=== PATIENT | male | born 1975 | race African-American/Black ===

== ENCOUNTER 2018-04-28 20:56 | Inpatient (IN) ==
[2018-04-28 21:26] LABS: Apearance,Urine CLEAR (Clear); Basophils % 0.1 % (0.0-0.8); Bilirubin,Urine Negative (Negative); Blood, Urine Moderate mg/dL (Negative); Glucose,Urine (UA) 150 mg/dL (Negative); Hematocrit 46.2 VOL% (42.0-52.0); Hemoglobin 15.2 GM/DL (14.0-18.0); Immature Granulocytes % 0.8 %; Immature Granulocytes Absolute 0.15 #; Ketones,Urine 5 mg/dL (Negative); Lymphocytes # 1.8 10*3/uL (1.4-4.0); Lymphocytes % 9.8 % (21.2-54.2); Mean Corpuscular HGB Conc 32.9 GM/DL (32-36); Mean Corpuscular Hemoglobin 31 PG (27-34); Mean Corpuscular Volume 95.1 FL (87-102); Mean Platelet Volume 9.3 FL (9.6-12.0); Monocytes # 1.1 10*3/uL (0.11-0.8); Mucus,Urine Occasional /LPF (Occasional); Neutrophils # 15.3 10*3/uL (1.4-7.4); Neutrophils % 83.3 % (38.7-73.9); Nitrite,Urine Negative (Negative); Platelet Count 192 T/CUMM (130-400); Protein,Urine Negative; RBC,Urine 3 /HPF (0-4); Red Blood Count 4.86 MC/CUMM (3.8-5.5); Red Cell Distribution Width 12.9 % (9.3-17.3); Urine Color Yellow (Yellow); Urine Urobilinogen < 2.0 EU/DL (0.2-1.0); WBC,Urine 1 /HPF (0-6); White Blood Count 18.4 T/CUMM (4-12)
[2018-04-28] MEDS ORDERED: ceFAZolin 1,000 MG VIAL ONE (21:27)
[2018-04-28 21:28] LABS: Barbiturates Screen,Urine Negative (Negative); Benzodiazepines Screen,Urine Negative (Negative); Cannabinoid Screen,Urine Negative (Negative); Opiate Screen,Urine Negative (Negative); Phencyclidine Screen,Urine Negative (Negative)
[2018-04-28] MEDS ORDERED: PROPOFOL 1,000 MG/100 ML BOTTLE IV ONE (21:28)
[2018-04-28 21:34] LABS: ABG HCO3 23.6 MMOL/L (20-26); ABG PCO2 36.8 MM HG (35-48); ABG PH 7.407 (7.35-7.45); ABG TCO2 19.6 MMOL/L (23-27)
[2018-04-28 21:36] LABS: INR 0.9; Partial Thromboplastin Time < 21.0 SECS (0-40)
[2018-04-28] MEDS ORDERED: VECURONIUM 10 MG VIAL IV ONE (21:39)
[2018-04-28] MEDS ORDERED: ROCURONIUM 100 MG/10 ML VIAL IV ONE ×2 (21:39→23:46)
[2018-04-28] MEDS ORDERED: ETOMIDATE 20 MG/10 ML VIAL IV ONE (21:39)
[2018-04-28] MEDS ORDERED: DIPH/TET/ACEL PERT BOOSTER VACCINE 0.5 ML VIAL IM ONE ×2 (21:47)
[2018-04-28 21:52] LABS: Alanine Aminotransferase 73 U/L (16-61); Alkaline Phosphatase 42 U/L (45-117); Amylase 55 U/L (25-115); Aspartate Amino Transferase 109 U/L (0-37); Blood Urea Nitrogen 13 MG/DL (7-18); Calcium 8.4 MG/DL (8.5-10.1); Glucose 109 MG/DL (74-106); Osmolality,Calculated 283.1 MOS/KG (273-304); Potassium 3.9 MMOL/L (3.5-5.1); Sodium 142 MMOL/L (136-145); Total Protein 5.9 G/DL (6.4-8.3)
[2018-04-28 22:19] LABS: Lactic Acid 1.4 MMOL/L (0.4-2.0)
[2018-04-28] MEDS: SODIUM CHLORIDE 0.9% 1,000 ML IV SCH (23:45)
[2018-04-28] MEDS ORDERED: PROPOFOL 1,000 MG/100 ML BOTTLE IV SCH (23:45)
[2018-04-28] MEDS ORDERED: SEVOFLURANE 1 UNIT/15 MINUTE INH ONE (23:46)
[2018-04-28] MEDS ORDERED: fentaNYL 100 MCG/2 ML VIAL ONE (23:46)
[2018-04-28] MEDS ORDERED: ETOMIDATE 40 MG/20 ML VIAL IV ONE (23:46)
[2018-04-28] MEDS ORDERED: MIDAZOLAM 2 MG/2 ML VIAL ONE (23:46)
[2018-04-28] MEDS ORDERED: LACTATED RINGERS 1,000 ML IV ONE (23:46)
[2018-04-29] MEDS: MORPHINE 4 MG/1 ML VIAL IV PRN ×2 (00:38→14:23)
[2018-04-29] MEDS ORDERED: fentaNYL INJ 1,250 MCG in SODIUM CHLORIDE 0.9% 225 ML IV PRN (00:43)
[2018-04-29 02:48] LABS: Pt O2 Delivery Device Ventilator
[2018-04-29 02:49] LABS: ABG Base Excess -1.8 MMOL/L (-2.5-2.5); ABG HCO3 24.3 MMOL/L (20-26); ABG Oxygen Saturation 98.8 % (95-100); ABG PCO2 46.7 MM HG (35-48); ABG PH 7.335 (7.35-7.45); ABG PO2 159.7 MM HG (80-95); ABG TCO2 25.8 MMOL/L (23-27)
[2018-04-29] MEDS: PROPOFOL 1,000 MG/100 ML BOTTLE IV SCH ×2 (03:13→07:16)
[2018-04-29] MEDS: ceFAZolin 2,000 MG in PREMIX 1 EACH IV SCH ×2 (05:21→14:59)
[2018-04-29] MEDS: SODIUM CHLORIDE 0.9% 1,000 ML IV SCH ×3 (07:15→23:30)
[2018-04-29 10:05] LABS: ABG Base Excess 2.2 MMOL/L (-2.5-2.5); ABG Oxygen Saturation 99.5 % (95-100); ABG PCO2 37.7 MM HG (35-48); ABG PH 7.456 (7.35-7.45); ABG PO2 243.5 MM HG (80-95); ABG TCO2 27.1 MMOL/L (23-27)
[2018-04-29] MEDS ORDERED: ONDANSETRON 4 MG/2 ML VIAL ONE (12:57)
[2018-04-29] MEDS: ONDANSETRON 4 MG/2 ML VIAL IV PRN ×2 (13:09→17:08)
[2018-04-30] MEDS: SODIUM CHLORIDE 0.9% 1,000 ML IV SCH ×2 (01:25→09:30)
[2018-04-30 11:11] VITALS: BP 124/73
== END 2018-04-30 12:15 | DRG 908 ==
LOC: EDUNIT# → EDBD → N.ED 20:56 → N.ICU 22:51 → N.EDINP 23:31 → N.ICU 04-29 00:19 → N.3W 04-29 16:10
PROVIDERS: ADMIT Surgery; ATTEND Surgery